=== PATIENT | male | born 1995 | race Caucasian/White ===

== ENCOUNTER 2017-08-02 04:46 | Emergency (ER) | payer SELFPAY ==
[~2017-08-02] VITALS: Ht 185.4 cm; Wt 77.4 kg
[2017-08-02 04:52] VITALS: BP 134/81; PULSE 121; RESP 20; TEMP 102.6; O2SAT 95
[2017-08-02] MEDS ORDERED: ACETAMINOPHEN 325 MG TAB PO ONE (05:15)
--- NOTE | 2017-08-02 05:24 | PD ---
HPI Chief Complaint: Fever Time Seen by Provider: 05:10 Travel History International Travel<30 days: No Contact w/Intl Traveler<30days: No Traveled to known affect area: No History of Present Illness HPI The patient is a 21-year-old male that complains of cough, congestion and fever up over 104 for 2 days. He denies any nausea, vomiting or diarrhea. He states he works over 60 hours a week. He took some ibuprofen at 4 PM and his temperature is 102.6. He denies any wheezes. 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 PFSH Past Medical History Cancer: No Cardiovascular Problems: No Diabetes: No Endocrine: No Genitourinary: Yes (KIDNEY STONES) Hepatitis: No Hiatal Hernia: No Immune Disorder: No Kidney Stones: Yes Musculoskeletal: No Neurologic: No Psychiatric: Yes (MILDLY CLAUSTROPHOBIC) Reproductive: No Respiratory: Yes (HX OF ASTHMA, SMOKES 1/2 PPD) Immunizations Current: Yes Thyroid Disease: No Tetanus Vaccination: > 5 Years Influenza Vaccination: No Past Surgical History AICD: No Genitourinary Surgery: Yes (HYDROCELE SURGERY X's 2) Joint Replacement: No Pacemaker: No Other Surgery: Yes (HYDROCELE 1 YRS OLD) Social History Alcohol Use: Yes (Occ.) Tobacco Use: Yes (1 PPD) Substance Use: No Allergies-Medications (Allergen,Severity, Reaction): Coded Allergies: amoxicillin (Unverified Allergy, Mild, RASH, 08/02/17) Reported Meds & Prescriptions Reported Meds & Active Scripts Active Tamiflu (Oseltamivir Phosphate) 75 Mg Cap 75 Mg PO BID 5 Days Review of Systems Except as stated in HPI: all other systems reviewed are Neg Physical Exam Narrative GENERAL: The patient is alert, oriented 3 in moderate apparent distress with his cough. His vital signs show temperature 102.6 with heart rate 121 but the rest of the vital signs are normal. SKIN: Focused skin assessment warm/dry. HEAD: Atraumatic. Normocephalic. EYES: Pupils equal and round. No scleral icterus. No injection or drainage. ENT: No nasal bleeding or discharge. Mucous membranes pink and moist. NECK: Trachea midline. No JVD. CARDIOVASCULAR: Regular rate and rhythm. No murmur appreciated. RESPIRATORY: No accessory muscle use. Clear to auscultation except for a few widely scattered rhonchi and rare wheezes. Breath sounds equal bilaterally. GASTROINTESTINAL: Abdomen soft, non-tender, nondistended. Hepatic and splenic margins not palpable. MUSCULOSKELETAL: No obvious deformities. No clubbing. No cyanosis. No edema. NEUROLOGICAL: Awake and alert. No obvious cranial nerve deficits. Motor grossly within normal limits. Normal speech. PSYCHIATRIC: Appropriate mood and affect; insight and judgment normal. Data Data Last Documented VS Vital Signs Date Time Temp Pulse Resp B/P (MAP) Pulse Ox O2 Delivery O2 Flow Rate FiO2 08/02/17 07:01 98.8 70 16 112/66 (81) 96 Room Air Orders Orders Acetaminophen (Tylenol) (08/02/17 05:15) Chest, Pa & Lat (08/02/17 05:12) Influenzae A/B Antigen (08/02/17 05:12) Oseltamivir (Tamiflu) (08/02/17 06:00) [facility] Medical Decision Making Medical Screen Exam Complete: Yes Emergency Medical Condition: Yes Medical Record Reviewed: Yes Interpretation(s) The influenza A/B antigen is positive for flu B antigen. The chest x-ray shows no acute disease. Differential Diagnosis Pneumonia, bronchitis, flu syndrome, nonspecific viral syndrome Narrative Course The patient has flu syndrome. Diagnosis Primary Impression: Influenza B Additional Instructions: Rest, increase liquids, stay out of the sun and do not allow your body to be stressed in any way. Follow-up with your primary care physician this week or early next week. The Tamiflu is 1 tablet twice daily for 10 days. Med/Other Pt SpecificInfo: Prescription(s) given Scripts Oseltamivir (Tamiflu) 75 Mg Cap 75 MG PO BID for Mgmt Viral Infection for 5 Days, #10 CAP 0 Refills Prov: Ezequiel Hobson MD 08/02/17 Disposition: 01 DISCHARGE HOME Condition: Stable Ezequiel Hobson MD Aug 02, 2017 05:24
[2017-08-02 05:45] VITALS: BP 115/69; PULSE 95; RESP 16; TEMP 99.7; O2SAT 95
[2017-08-02] MEDS ORDERED: OSEL75 PO (05:52)
[2017-08-02] MEDS ORDERED: OSELTAMIVIR PHOSPHATE 75 MG CAP PO ONE (06:00)
--- NOTE | 2017-08-02 06:36 | RADRPT ---
EXAM DATE/TIME: 08/02/2017 05:27 [place] COMPARISON: No previous studies available for comparison. INDICATIONS : Cough and congestion. MEDICAL HISTORY : None. SURGICAL HISTORY : None. ENCOUNTER: Initial ACUITY: 2 days PAIN SCORE: 0/10 LOCATION: Bilateral chest FINDINGS: PA and lateral views of the chest demonstrate the lungs to be symmetrically aerated without evidence of mass, infiltrate or effusion. The cardiomediastinal contours are unremarkable. Osseous structure s are intact. CONCLUSION: No acute disease. Castro Obrien MD on August 02, 2017 at 6:33 Board Certified Radiologist. This report was verified electronically.
[2017-08-02 07:01] VITALS: BP 112/66; PULSE 70; RESP 16; TEMP 98.8; O2SAT 96
== END 2017-08-02 07:25 | disposition home or self-care (01) ==
LOC: PHED 04:46
DX: J10.1 Influenza due to other identified influenza virus with other respiratory manifestations (principal); R05 Cough; F17.210 Nicotine dependence, cigarettes, uncomplicated; J45.909 Unspecified asthma, uncomplicated; Z88.0 Allergy status to penicillin; Z87.442 Personal history of urinary calculi
CPT/HCPCS: 71046; 87804; 99284